=== PATIENT | male | born 1970 | race Caucasian/White ===

== ENCOUNTER 2021-08-25 20:36 | Emergency (ER) | payer OTHER, SELFPAY ==
--- NOTE | ~2021-08-25 | CT_ITS ---
EXAMINATION: CT abdomen pelvis w con DATE: 08/26/2021 02:11 INDICATION: Left groin pain and swelling. Left inguinal hernia. TECHNIQUE: Computed tomography (CT) of the abdomen and pelvis was performed with 100 mL Omnipaque 350 intravenous contrast. Automated exposure control and iterative reconstruction technique were employe d. The dose-length product was 1251.99 mGy-cm. COMPARISON: None. FINDINGS: The visualized portions of the lung bases demonstrate mild atelectasis. No pleural effusion . The heart size is normal. No pericardial effusion. The liver, gallbladder, spleen, pancreas, and ad renal glands are normal. There are cysts in the kidneys measuring up to 6 mm on the right. There are bilateral inguinal hernias containing fat, left larger than right. There are no dilated loops of carmen l. The appendix is normal. There are no pathologically enlarged lymph nodes. There is no free intrape ritoneal fluid. There is mild thoracic spondylosis. There is moderate lower lumbar spondylosis. IMPRESSION: 1. Bilateral inguinal hernias containing fat, left larger than right. Reviewed, dictated and finalized at location [facility]
[2021-08-25 21:08] VITALS: BP 154/94; PULSE 95; RESP 18; TEMP 36.8; O2SAT 98
[2021-08-26 00:34] VITALS: BP 137/88; PULSE 81; RESP 16; O2SAT 96
[2021-08-26] MEDS: SODIUM CHLORIDE 0.9% IV 1,000 ML 999 ML IV CONT (00:46)
[2021-08-26 01:06] LABS: Basophils Absolute Auto 0.1 K/mm3 (0.0-0.1); Basophils Percent Auto 0.8 % (0.2-1.2); Eosinophils Absolute Auto 0.8 K/mm3 (0-0.3); Eosinophils Percent Auto 8.2 % (0-4.4); Hematocrit 44.3 % (42.0-52.0); Hemoglobin 15.8 g/dL (14.0-18.0); Immature Granulocyte Absolute 0.04 K/mm3 (0.00-0.031); Immature Granulocyte Percent A 0.4 % (0-0.5); Lymphocytes Absolute Auto 3.66 K/mm3 (0.9-3.2); Lymphocytes Percent Auto 37.6 % (18.3-44.2); Mean Corpuscular HGB Conc 35.7 g/dl (32-36); Mean Corpuscular Hemoglobin 32.4 pg (26-34); Mean Corpuscular Volume 90.8 fl (80-100); Mean Platelet Volume 10.2 fl (7.4-10.4); Monocytes Absolute Auto 0.8 K/mm3 (0.1-0.6); Monocytes Percent Auto 8.3 % (2.6-8.5); Neutrophils Absolute Auto 4.3 K/mm3 (1.3-6.7); Neutrophils Percent Auto 44.7 % (45.5-73.1); Platelet Count Result 275 k/mm3 (150-375); Red Blood Count 4.88 M/mm3 (4.6-6.20); Red Cell Distribution Width 13.3 % (11.5-14.5); White Blood Count 9.7 K/mm3 (4.5-10.0)
[2021-08-26 01:20] LABS: Add Urine Microscopic? YES; Appearance Urine Clear (Clear); Bilirubin Urine Negative (Negative); Blood Urine Negative (Negative); Color Urine Yellow (Yellow); Glucose Urine UA Negative (Negative); Ketones Urine Negative (Negative); Leukocyte Esterase Ur Trace LEU/UL (Negative); Mucus Urine Rare /lpf; Nitrate Urine Negative (Negative); Protein Urine Negative (Negative); Specific Grav Ur 1.025 (1.001-1.035); Urobilinogen Urine Negative mg/dL (<2.0)
[2021-08-26 01:22] LABS: Lactic Acid Reflex 1.5 mmol/L (0.7-2.1)
[2021-08-26 01:25] LABS: Alanine Aminotransferase 26 U/L (4-50); Albumin Level 4.7 g/dL (3.5-5.1); Alkaline Phosphatase 67 U/L (38-126); Anion Gap 11 mmol/L (8-16); Aspartate Amino Transferase 29 U/L (17-59); Bilirubin,Total 0.6 mg/dL (0.2-1.3); Blood Urea Nitrogen 14 mg/dL (9-20); Calcium 9.8 mg/dL (8.4-10.2); Carbon Dioxide 22 mmol/L (22-30); Chloride 103 mmol/L (98-107); Estimated CRCL calculation 113 ml/min; Estimated Glomerular Filt Rate > 60; Glucose 142 mg/dL (65-110); Lipase 61 U/L (23-300); Potassium 3.9 mmol/L (3.4-5.0); Sodium 136 mmol/L (137-145)
--- NOTE | 2021-08-26 01:32 | ED.GENADULT ---
HPI - General Adult General Chief complaint: Urogenital-Male Stated complaint: Swelling in groin Time Seen by Provider: 08/25/21 23:24 History of Present Illness HPI narrative: Patient 30-year-old gentleman who presents the emergency department with chief complaint of hernia and left lower quadrant. Patient reports that he was lifting a bag of dog food felt a lump appearing his left lower quadrant reports that it is exquisitely tender. Patient states that it is not gone down on its own reports no nausea no vomiting no diarrhea. Related Data Allergies Allergy/AdvReac Type Severity Reaction Status Date / Time niacin AdvReac Flushing Verified 08/26/21 00:37 Review of Systems Review of Systems: A 10 system review of systems was completed on the patient and is negative except for what is stated in the HPI. Nursing and ancillary documentation was reviewed. Exam Narrative: GENERAL: Well-appearing, well-nourished, and in no acute distress. HEAD: Normocephalic, atraumatic. EYES: PERRLA and EOMI. ENT: Nares clear, no rhinorrhea or epistaxis. Mucous membranes moist. NECK: Supple. CHEST: Clear to auscultation. No respiratory distress. HEART: Regular rate and rhythm. No murmur heard. Normal peripheral pulses. ABDOMEN: Soft, nontender, nondistended, normal active bowel sounds. There is a reducible hernia in the left lower quadrant EXTREMITIES: Normal range of motion. No edema. SKIN: Warm, dry, no rash. NEURO: No focal deficits. Alert and oriented x3. PSYCH: Normal mood and affect. Course Course Emergency Course: Using gentle pressure the hernia was reduced manually in the emergency department the patient had resolution in his symptoms and is currently asymptomatic Vital Signs Vital signs: Vital Signs Temperature 36.8 C 08/25/21 21:08 Pulse Rate 95 08/25/21 21:08 Respiratory Rate 18 08/25/21 21:08 Blood Pressure 154/94 H 08/25/21 21:08 Pulse Oximetry 98 08/25/21 21:08 Temperature 36.8 C 08/25/21 21:08 Pulse Rate 81 08/26/21 00:34 Respiratory Rate 16 08/26/21 00:34 Blood Pressure 137/88 08/26/21 00:34 Pulse Oximetry 96 08/26/21 00:34 Medical Decision Making Vital Signs Vital Signs: Vital Signs Temperature 36.8 C 08/25/21 21:08 Pulse Rate 95 08/25/21 21:08 Respiratory Rate 18 08/25/21 21:08 Blood Pressure 154/94 H 08/25/21 21:08 Pulse Oximetry 98 08/25/21 21:08 Temperature 36.8 C 08/25/21 21:08 Pulse Rate 81 08/26/21 00:34 Respiratory Rate 16 08/26/21 00:34 Blood Pressure 137/88 08/26/21 00:34 Pulse Oximetry 96 08/26/21 00:34 Lab Data Result diagrams: 08/26/21 00:45 08/26/21 00:45 Labs: Lab Results 08/26/21 08/26/21 08/26/21 Range/Units 00:45 00:45 00:45 WBC 9.7 (4.5-10.0) K/mm3 RBC 4.88 (4.6-6.20) M/mm3 Hgb 15.8 (14.0-18.0) g/dL Hct 44.3 (42.0-52.0) % MCV 90.8 (80-100) fl MCH 32.4 (26-34) pg MCHC 35.7 (32-36) g/dl RDW 13.3 (11.5-14.5) % Plt Count 275 (150-375) k/mm3 MPV 10.2 (7.4-10.4) fl Immature Gran % (Auto) 0.4 (0-0.5) % Neut % (Auto) 44.7 L (45.5-73.1) % Lymph % (Auto) 37.6 (18.3-44.2) % [place] % (Auto) 8.3 (2.6-8.5) % Eos % (Auto) 8.2 H (0-4.4) % Baso % (Auto) 0.8 (0.2-1.2) % Lymph # (Auto) 3.66 H (0.9-3.2) K/mm3 [place] # (Auto) 0.8 H (0.1-0.6) K/mm3 Eos # (Auto) 0.8 H (0-0.3) K/mm3 Baso # (Auto) 0.1 (0.0-0.1) K/mm3 Abs Immat Gran (auto) 0.04 H (0.00-0.031) K/mm3 Absolute Neuts (auto) 4.3 (1.3-6.7) K/mm3 Absolute Nucleated RBC 0.0 (0.0-0.012) K/mm3 Nucleated RBC % 0.0 (0.0-0.2) % Sodium 136 L (137-145) mmol/L Potassium 3.9 (3.4-5.0) mmol/L Chloride 103 (98-107) mmol/L Carbon Dioxide 22 (22-30) mmol/L Anion Gap 11 (8-16) mmol/L BUN 14 (9-20) mg/dL Creatinine 0.80 (0.7-1.3) mg/dL Estim Creat Clear Calc 113 ml/min Estimated GFR > 60 (59 -
[2021-08-26 03:50] VITALS: BP 120/71; PULSE 66; RESP 14; O2SAT 98
== END 2021-08-26 03:52 | disposition home or self-care (01) ==
PROVIDERS: Emergency Provider Emergency Medicine; PCP Family Medicine
DX: K40.90 Unilateral inguinal hernia, without obstruction or gangrene, not specified as recurrent (principal); R82.998 Other abnormal findings in urine
CPT/HCPCS: 36415; 74177; 80053; 81001; 83605; 83690; 85025; 87086; 96360; 96361; 99284; J7030; Q9967

== ENCOUNTER 2022-02-26 22:46 | Emergency (ER) | payer MEDICARE, SELFPAY ==
[2022-02-26 23:02] VITALS: BP 165/104; PULSE 84; RESP 18; TEMP 37.6; O2SAT 98
--- NOTE | 2022-02-26 23:29 | ED.DENTAL ---
HPI - Dental/Oral General Chief complaint: Dental/Oral Stated complaint: Mouth Swollen, teeth pain Time Seen by Provider: 02/26/22 23:15 History of Present Illness HPI Narrative: 51-year-old male presenting to the emergency department for evaluation of worsening dental pain. Patient states he has had previous issues with tooth decay and dental caries. Patient states over the last 3 to 4 days he has had worsening dental pain associated with his lower front teeth. Patient states he does have pain and swelling under his tongue. Patient denies any difficulty swallowing or breathing. Patient has been taking his home Vicodin for pain control. Patient is not currently on any antibiotics. Patient does have a dentist that he will follow-up with. Related Data Allergies Allergy/AdvReac Type Severity Reaction Status Date / Time niacin AdvReac Flushing Verified 02/26/22 23:36 Review of Systems Review of Systems: CONSTITUTIONAL: Denies fever, chills, or sweats. EYES: Denies visual changes, redness, or discharge. ENT: See HPI CARDIOVASCULAR: Denies chest pain, palpitations, or edema. RESPIRATORY: Denies cough or dyspnea. GASTROINTESTINAL: Denies abdominal pain, nausea, vomiting, or diarrhea. GENITOURINARY: Denies dysuria or hematuria. SKIN: Denies rash or itching. MUSCULOSKELETAL: Denies back pain, joint pain, or myalgia. NEUROLOGIC: Denies headache, numbness, or weakness. Exam Narrative: APPEARANCE: Well appearing, no pain, no distress, well-nourished. HEAD: normocephalic, atraumatic. EYES: PERRLA/EOMI, conjunctivae clear. NOSE: Normal no drainage EARS:TMS clear with good light reflex. THROAT: Pharynx clear, no exudate. No submandibular swelling. NECK: Supple. No adenopathy, no masses. NEURO: Alert. Cranial nerves II through XII intact. Grossly intact SKIN: Warm, dry. Normal Color Course Course Emergency Course: Patient was started on Augmentin in the emergency department. Patient was provided medication for pain control in the emergency room. 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 Patient was encouraged to have close follow-up with a dentist. Patient was also on reasons to return to the emergency room. All questions answered. Vital Signs Vital signs: Vital Signs Temperature 99.7 F H 02/26/22 23:02 Pulse Rate 84 02/26/22 23:02 Respiratory Rate 18 02/26/22 23:02 Blood Pressure 165/104 H 02/26/22 23:02 Pulse Oximetry 98 02/26/22 23:02 Oxygen Delivery Room Air 02/26/22 23:02 Temperature 99.7 F H 02/26/22 23:02 Pulse Rate 75 02/27/22 00:02 Respiratory Rate 16 02/27/22 00:02 Blood Pressure 147/96 H 02/27/22 00:02 Pulse Oximetry 97 02/27/22 00:02 Oxygen Delivery Room Air 02/26/22 23:02 Discharge Plan Discharge Clinical Impression: Toothache, Dental caries Patient Disposition: Home, Self-Care Condition: Stable Instructions: Antibiotic Form, Toothache (ED) Additional Instructions: Have close follow-up with your dentist. Ibuprofen as directed. Your home Vicodin as needed for pain control and antibiotic as directed until completed. If you have any worsening symptoms or if you have any questions or concerns then please call or return to the emergency department. Prescriptions: New amoxicillin-pot clavulanate 875-125 mg tablet 1 tablet PO Q12H Qty: 14 0RF Follow-up/Referrals: Shayla,Alfred Malone MD [Primary Care Provider] - Stand Alone Forms: Work/School Release IP
[2022-02-26] MEDS: AMOXICILLIN/CLAVULANATE K 875-125 MG TAB 1 TABLET PO (23:34)
[2022-02-26] MEDS: HYDROcodone/acetaminophen (*CRX) 5-325 MG TABLET 1 TAB PO (23:34)
[2022-02-27 00:02] VITALS: BP 147/96; PULSE 75; RESP 16; O2SAT 97
== END 2022-02-26 23:46 | disposition home or self-care (01) ==
LOC: ANHED 23:38
PROVIDERS: Emergency Provider Emergency Medicine; PCP Family Medicine
DX: K02.9 Dental caries, unspecified (principal)
CPT/HCPCS: 99283; A9270

== ENCOUNTER 2022-07-13 09:56 | Outpatient (CLI) | payer MEDICARE, SELFPAY ==
[2022-07-13 10:10] LABS: Hematocrit 42.8 % (42.0-52.0); Hemoglobin 15.7 g/dL (14.0-18.0); Mean Corpuscular HGB Conc 36.7 g/dl (32-36); Mean Corpuscular Hemoglobin 33.5 pg (26-34); Mean Corpuscular Volume 91.5 fl (80-100); Mean Platelet Volume 10.2 fl (7.4-10.4); Platelet Count Result 244 k/mm3 (150-375); Red Blood Count 4.68 M/mm3 (4.6-6.20); Red Cell Distribution Width 13.1 % (11.5-14.5); White Blood Count 6.5 K/mm3 (4.5-10.0)
[2022-07-13 10:28] LABS: Alanine Aminotransferase 29 U/L (6-50); Albumin Level 4.5 g/dL (3.5-5.1); Alkaline Phosphatase 82 U/L (38-126); Anion Gap 13 mmol/L (8-16); Aspartate Amino Transferase 32 U/L (17-59); Bilirubin,Total 0.6 mg/dL (0.2-1.3); Blood Urea Nitrogen 12 mg/dL (9-20); Calcium 8.7 mg/dL (8.4-10.2); Carbon Dioxide 19 mmol/L (22-30); Chloride 105 mmol/L (98-107); Estimated Glomerular Filt Rate > 60; Glucose 158 mg/dL (65-110); Potassium 4.4 mmol/L (3.4-5.0); Sodium 137 mmol/L (137-145)
[2022-07-13 11:21] LABS: Cholesterol 227 mg/dL (0-200)
[2022-07-13 11:23] LABS: Triglycerides 1845 mg/dL (<150)
[2022-07-13 11:46] LABS: Hemoglobin A1C 6.7 % (<5.7)
[2022-07-13 11:48] LABS: LDL Cholesterol Direct < 30 mg/dL
[2022-07-13 13:46] LABS: Prostate Specific Antigen 0.6 ng/mL (< OR = 4.0)
== END 2022-07-13 09:57 | disposition home or self-care (01) ==
PROVIDERS: PCP Internal Medicine; Visit Provider Internal Medicine
DX: Z00.01 Encounter for general adult medical examination with abnormal findings (principal); N40.0 Benign prostatic hyperplasia without lower urinary tract symptoms; Z79.899 Other long term (current) drug therapy; Z12.5 Encounter for screening for malignant neoplasm of prostate
CPT/HCPCS: 36415; 80053; 80061; 83036; 84153; 84443; 85027; G0103

== ENCOUNTER 2023-06-17 10:38 | Emergency (ER) | payer MEDICARE, MEDICAID, SELFPAY ==
[2023-06-17 10:41] VITALS: BP 154/96; PULSE 85; RESP 18; TEMP 36.7; O2SAT 100
--- NOTE | 2023-06-17 11:21 | ED.WOUNDLAC ---
HPI - Wound/Laceration General Chief Complaint: Wound/Laceration Stated Complaint: lip laceration Time Seen by Provider: 06/17/23 11:05 Source: patient Mode of arrival: ambulatory Limitations: no limitations History of Present Illness HPI narrative: This is a 52-year-old male that presents to the emergency department for a laceration on the inside of his lip. Sustained yesterday evening. Reports he was ripping out a deck in a board popped up and hit him in the lip. He did not lose consciousness. Denies vision changes, vomiting or numbness. He is unsure of his last tetanus vaccination. Denies fevers or abnormal drainage. Related Data Allergies Allergy/AdvReac Type Severity Reaction Status Date / Time niacin AdvReac Flushing Verified 03/26/23 10:48 Review of Systems Review of Systems: CONSTITUTIONAL: Denies fever EYES: Denies visual changes GASTROINTESTINAL: Denies vomiting SKIN: Reports laceration NEUROLOGIC: Denies numbness, or weakness. All systems reviewed & are unremarkable except as noted in HPI and below PMFSH Past Medical History Medical History Acute arthritis Allergies Annual visit for general adult medical examination with abnormal findings Anxiety Chronic dermatitis Degeneration of lumbar intervertebral disc Degenerative arthritis of right shoulder region Dyslipidemia Erectile dysfunction GERD (gastroesophageal reflux disease) Headache, migraine Obesity Prostatism Surgical History Surgical History History of hernia surgery Family History Family History Father Asthma Alcoholism Diabetes mellitus Hypertension Mother Alcoholism Asthma Hypertension Grandparent Alcoholism Asthma Other Acute arthritis Anxiety Social History Social History (Updated 03/26/23 @ 11:09 by Talia Thompson CMA) Smoking packs per day: 2 Smoking cigarettes per day: 40.0 Smoking status: Former smoker Tobacco type: cigarettes and cigars Alcohol intake: current Drinks per week: 6 Substance use: current Substance use type: marijuana Lack of Transportation: No Lack of Food: Sometimes True Current Housing: I Have Housing Concerned About Future Housing: No Difficulty Paying Gas/Electric Bills: YES Difficulty Paying for Meds: No Currently Unemployed: No Education: Decline to Answer Difficulty w/ Childcare or Family Care: No Exam Narrative: GENERAL: Well-appearing, well-nourished, and in no acute distress. HEAD: Normocephalic. 1 cm linear laceration into subcutaneous tissue on the lower lip inside the mouth with signs of healing EYES: PERRLA and EOMI. ENT: Nares clear, no rhinorrhea or epistaxis. Mucous membranes moist. Oropharynx without tonsillar hypertrophy exudate or other lesions. Bilateral TMs pearly driscoll non-bulging NECK: Supple. No adenopathy or masses. CHEST: Clear to auscultation. No respiratory distress. No wheezes rales or rhonchi HEART: Regular rate and rhythm. No murmur heard. Normal peripheral pulses. EXTREMITIES: Normal range of motion. No edema. SKIN: Warm, dry, no rash. NEURO: No focal deficits. Alert and oriented x3. Cranial nerves II through XII grossly intact PSYCH: Normal mood and affect Course Course Emergency Course: Patient agrees with plan of care Vital Signs Vital signs: Vital Signs Temperature 98.0 F 06/17/23 10:41 Pulse Rate 85 06/17/23 10:41 Respiratory Rate 18 06/17/23 10:41 Blood Pressure 154/96 H 06/17/23 10:41 Pulse Oximetry 100 06/17/23 10:41 Oxygen Delivery Room Air 06/17/23 10:41 Temperature 98.0 F 06/17/23 10:41 Pulse Rate 85 06/17/23 10:41 Respiratory Rate 18 06/17/23 10:41 Blood Pressure 154/96 H 06/17/23 10:41 Pulse Oximetry 100 06/17/23 10:41 Oxygen Delivery Room Air 06/17/23 10:41
--- NOTE | 2023-06-17 11:29 | PC.NURSE ---
Pt refusing tetanus immunization. Aubree BADILLO informed
== END 2023-06-17 11:44 | disposition home or self-care (01) ==
PROVIDERS: Emergency Provider Physician Assistant; PCP Family Medicine
DX: S01.511A Laceration without foreign body of lip, initial encounter (principal); F17.210 Nicotine dependence, cigarettes, uncomplicated; M19.90 Unspecified osteoarthritis, unspecified site; F41.9 Anxiety disorder, unspecified; K21.9 Gastro-esophageal reflux disease without esophagitis; W20.8XXA Other cause of strike by thrown, projected or falling object, initial encounter
CPT/HCPCS: 99283

== ENCOUNTER 2023-07-11 10:17 | Outpatient (CLI) | payer MEDICARE, MEDICAID, SELFPAY ==
[2023-07-11 11:02] LABS: Basophils Absolute Auto 0.1 K/mm3 (0.0-0.1); Basophils Percent Auto 0.7 % (0.2-1.2); Eosinophils Absolute Auto 0.8 K/mm3 (0-0.3); Eosinophils Percent Auto 10.2 % (0-4.4); Hematocrit 54.3 % (42.0-52.0); Hemoglobin 18.8 g/dL (14.0-18.0); Immature Granulocyte Absolute 0.03 K/mm3 (0.00-0.031); Immature Granulocyte Percent A 0.4 % (0-0.5); Lymphocytes Absolute Auto 1.67 K/mm3 (0.9-3.2); Lymphocytes Percent Auto 20.5 % (18.3-44.2); Mean Corpuscular HGB Conc 34.6 g/dl (32-36); Mean Corpuscular Hemoglobin 33.2 pg (26-34); Mean Corpuscular Volume 95.8 fl (80-100); Mean Platelet Volume 10.2 fl (7.4-10.4); Monocytes Absolute Auto 0.6 K/mm3 (0.1-0.6); Monocytes Percent Auto 7.7 % (2.6-8.5); Neutrophils Absolute Auto 4.9 K/mm3 (1.3-6.7); Neutrophils Percent Auto 60.5 % (45.5-73.1); Platelet Count Result 236 k/mm3 (150-375); Red Blood Count 5.67 M/mm3 (4.6-6.20); White Blood Count 8.2 K/mm3 (4.5-10.0)
[2023-07-11 11:39] LABS: Alanine Aminotransferase 29 U/L (6-50); Albumin Level 4.6 g/dL (3.5-5.1); Alkaline Phosphatase 52 U/L (38-126); Anion Gap 10 mmol/L (8-16); Aspartate Amino Transferase 29 U/L (17-59); Bilirubin,Total 1.1 mg/dL (0.2-1.3); Blood Urea Nitrogen 15 mg/dL (9-20); Calcium 9.4 mg/dL (8.4-10.2); Carbon Dioxide 26 mmol/L (22-30); Chloride 100 mmol/L (98-107); Cholesterol 265 mg/dL (0-200); Estimated Glomerular Filt Rate > 60; Glucose 124 mg/dL (65-110); HDL Direct 34 mg/dL; Potassium 4.6 mmol/L (3.4-5.0); Sodium 136 mmol/L (137-145); Triglycerides 336 mg/dL (<150)
[2023-07-11 11:49] LABS: LDL Cholesterol Direct 145 mg/dL
[2023-07-11 18:46] LABS: Vitamin D 25 Hydroxy 20.6 ng/mL
[2023-07-12 01:04] LABS: Hemoglobin A1C 5.7 % (<5.7)
[2023-07-13 09:24] LABS: Amphetamines NEGATIVE ng/mL (<500); Barbiturates NEGATIVE ng/mL (<300); Benzodiazepines NEGATIVE ng/mL (<100); Cocaine Metabolite NEGATIVE ng/mL (<150); Marijuana Metabolite POSITIVE ng/mL (<20); Methadone Metabolite NEGATIVE ng/mL (<100); Opiates POSITIVE ng/mL (<100); Oxidant NEGATIVE mcg/mL (<200); pH 6.3 (4.5-9.0)
== END 2023-07-11 10:18 | disposition home or self-care (01) ==
PROVIDERS: PCP Family Medicine; Visit Provider Family Medicine
DX: E11.9 Type 2 diabetes mellitus without complications (principal); E78.1 Pure hyperglyceridemia; E78.5 Hyperlipidemia, unspecified; F41.9 Anxiety disorder, unspecified; G43.909 Migraine, unspecified, not intractable, without status migrainosus; K21.9 Gastro-esophageal reflux disease without esophagitis; N52.9 Male erectile dysfunction, unspecified; G89.29 Other chronic pain; E55.9 Vitamin D deficiency, unspecified
CPT/HCPCS: 36415; 80053; 80061; 80307; 82306; 83036; 85025